=== PATIENT | female | born 1975 | race Caucasian/White ===

== ENCOUNTER 2019-02-23 12:33 | Emergency (ER) | payer MEDICAID, OTHER ==
[~2019-02-23] VITALS: Ht 157.5 cm; Wt 53.1 kg
[2019-02-23 14:35] VITALS: BP 105/66
== END 2019-02-23 15:23 | disposition home or self-care (01) ==
LOC: ER 12:33
DX: Z32.01 Encounter for pregnancy test, result positive (principal)
CPT/HCPCS: 36415; 84702

== ENCOUNTER 2019-03-01 13:32 | Emergency (ER) | payer MEDICAID ==
[~2019-03-01] VITALS: Ht 157.5 cm; Wt 53.1 kg
[2019-03-01 15:23] LABS: Urine Bacteria FEW /hpf (None Seen); Urine Blood 1+ /uL (Negative); Urine Mucus FEW (None Seen); Urine Specific Gravity 1.026 (1.001-1.035); Urine WBC 1 /hpf (0 - 5)
[2019-03-01 19:33] VITALS: BP 110/72
== END 2019-03-01 19:58 | disposition home or self-care (01) ==
LOC: ER 13:46
DX: O20.0 Threatened abortion (principal); Z3A.01 Less than 8 weeks gestation of pregnancy
CPT/HCPCS: 36415; 76801; 81001; 81025; 84702